=== PATIENT | male | born 1995 | race Caucasian/White ===

== ENCOUNTER 2017-01-04 17:00 | Inpatient (IN) | payer MEDICAID ==
[~2017-01-04] VITALS: Ht 185.4 cm; Wt 106.0 kg
[2017-01-04 17:23] LABS: BASOPHILS % (AUTO) 0.2 % (0.0-2.0); EOSINOPHILS % (AUTO) 0.4 % (1.0-6.0); HEMATOCRIT 46.5 % (41-53); HEMOGLOBIN 16.1 g/dL (13.5-17.5); LYMPHOCYTES # (AUTO) 1.3 K/uL (1.0-4.8); LYMPHOCYTES % (AUTO) 10.1 % (22.0-44.0); MEAN CORPUSCULAR HEMOGLOBIN 29.9 pg (26.0-34.0); MEAN CORPUSCULAR HGB CONC 34.7 G/dL (31.0-37.0); MEAN CORPUSCULAR VOLUME 86 fL (80-100); MONOCYTES # (AUTO) 0.6 K/uL (0.1-1.0); NEUTROPHILS # (AUTO) 10.8 K/uL (1.8-7.7); NEUTROPHILS % (AUTO) 84.3 % (40.0-70.0); PLATELET COUNT (AUTO) 263 K/uL (150-450); RED CELL DISTRIBUTION WIDTH 13.1 % (11.5-14.5); WHITE BLOOD COUNT (AUTO) 12.9 K/uL (4.5-11.0)
[2017-01-04 17:27] LABS: GLUCOSE,POINT OF CARE 157 MG/DL (70-110)
[2017-01-04 17:38] LABS: ANION GAP 15 mmol/L (8-16); CALCIUM, TOTAL 9.4 mg/dL (8.8-10.5); CARBON DIOXIDE 25 mmol/L (22-29); CHLORIDE 100 mmol/L (98-107); CREATININE 1.46 mg/dL (0.60-1.30); GLOMERULAR FILTR. RATE CALC > 60 mL/min (>60); POTASSIUM 3.3 mmol/L (3.5-5.1); SODIUM SERUM 140 mmol/L (136-145); UREA NITROGEN, BLOOD 13 mg/dL (7-18)
[2017-01-04 17:45] LABS: ALANINE AMINOTRANSFERASE 32 U/L (12-78); ALBUMIN 4.5 g/dL (3.4-5.0); ASPARTATE AMINOTRANSFERASE 21 U/L (15-37); BILIRUBIN,TOTAL 0.5 mg/dL (0.1-1.0); TOTAL PROTEIN, SERUM 8.4 g/dL (6.4-8.2)
[2017-01-04] MEDS ORDERED: POTASSIUM CHLORIDE 20 MEQ ER TABLET PO ONE (21:00)
[2017-01-04 23:05] VITALS: BP 118/73
[2017-01-05 00:59] VITALS: BP 118/73
[2017-01-05] MEDS ORDERED: INFLUENZA VIRUS VACCINE QVS 2017-18 (3YR+)/PF 60 MCG/0.5 ML SYRINGE IM ONE (01:45)
[2017-01-05 07:03] LABS: CHOL/HDL RATIO 3.2 (4.2-7.3); POTASSIUM 4.7 mmol/L (3.5-5.1)
[2017-01-05 08:51] VITALS: BP 145/87
[2017-01-05] MEDS: RisperiDONE 1 MG TABLET PO SCH ×3 (09:30→20:28)
[2017-01-05] MEDS ORDERED: IBUPROFEN 400 MG TABLET PO PRN (15:30)
[2017-01-05] MEDS ORDERED: ACETAMINOPHEN 325 MG TABLET PO PRN (15:30)
[2017-01-05 16:47] VITALS: BP 150/98
[2017-01-06 00:55] VITALS: BP 152/91
[2017-01-06 06:51] LABS: BASOPHILS % (AUTO) 0.2 % (0.0-2.0); EOSINOPHILS % (AUTO) 1.9 % (1.0-6.0); HEMATOCRIT 46.8 % (41-53); HEMOGLOBIN 16.1 g/dL (13.5-17.5); LYMPHOCYTES # (AUTO) 2.2 K/uL (1.0-4.8); LYMPHOCYTES % (AUTO) 21.9 % (22.0-44.0); MEAN CORPUSCULAR HEMOGLOBIN 29.7 pg (26.0-34.0); MEAN CORPUSCULAR HGB CONC 34.4 G/dL (31.0-37.0); MEAN CORPUSCULAR VOLUME 86 fL (80-100); MONOCYTES # (AUTO) 0.7 K/uL (0.1-1.0); MONOCYTES % (AUTO) 6.9 % (2.0-9.0); NEUTROPHILS # (AUTO) 6.9 K/uL (1.8-7.7); NEUTROPHILS % (AUTO) 69.1 % (40.0-70.0); PLATELET COUNT (AUTO) 264 K/uL (150-450); RED BLOOD CELL COUNT(AUTO) 5.43 MIL/uL (4.50-5.90); RED CELL DISTRIBUTION WIDTH 13.4 % (11.5-14.5)
[2017-01-06 07:15] LABS: ALANINE AMINOTRANSFERASE 29 U/L (12-78); ALBUMIN 4.4 g/dL (3.4-5.0); ANION GAP 13 mmol/L (8-16); ASPARTATE AMINOTRANSFERASE 20 U/L (15-37); BILIRUBIN,TOTAL 0.7 mg/dL (0.1-1.0); CALCIUM, TOTAL 9.3 mg/dL (8.8-10.5); CARBON DIOXIDE 24 mmol/L (22-29); CHLORIDE 102 mmol/L (98-107); CHOL/HDL RATIO 3.2 (4.2-7.3); CREATININE 1.04 mg/dL (0.60-1.30); GLOMERULAR FILTR. RATE CALC > 60 mL/min (>60); POTASSIUM 3.9 mmol/L (3.5-5.1); SODIUM SERUM 139 mmol/L (136-145); THYROID STIMULATING HORMONE 1.03 uIU/mL (0.36-3.74); TOTAL PROTEIN, SERUM 7.8 g/dL (6.4-8.2); UREA NITROGEN, BLOOD 14 mg/dL (7-18)
[2017-01-06 07:28] LABS: HEMOGLOBIN A1C 5.6 % (4.5-6.2)
[2017-01-06 08:16] VITALS: BP 161/95
[2017-01-06] MEDS: RisperiDONE 1 MG TABLET PO SCH ×2 (08:19→21:00)
[2017-01-06] MEDS: LORazepam 2 MG TABLET PO PRN (08:49)
[2017-01-06] MEDS: HALOPERIDOL 5 MG TABLET PO PRN (08:49)
[2017-01-07 02:02] VITALS: BP 138/80
[2017-01-07 02:33] LABS: ADD UA MICROSCOPIC NO; APPEARANCE,URINE CLEAR (CLEAR); GLUCOSE, URINE (UA) NEGATIVE (NEGATIVE); KETONES,URINE NEGATIVE (NEGATIVE); LEUKOCYTE ESTERASE ,URINE NEGATIVE (NEGATIVE); OCCULT BLOOD,URINE NEGATIVE (NEGATIVE); PH,URINE 5.5 (5.0-8.0); PROTEIN,URINE NEGATIVE (NEGATIVE)
[2017-01-07] MEDS: RisperiDONE 1 MG TABLET PO SCH ×3 (08:43→21:32)
[2017-01-07 08:54] VITALS: BP 158/84
[2017-01-07 16:00] VITALS: BP 156/94
[2017-01-07] MEDS: LORazepam 2 MG TABLET PO PRN (17:24)
[2017-01-07] MEDS: HALOPERIDOL 5 MG TABLET PO PRN (17:24)
[2017-01-07 20:17] VITALS: BP 149/72
[2017-01-08 01:40] VITALS: BP 136/82
[2017-01-08] MEDS: RisperiDONE 1 MG TABLET PO SCH ×2 (08:41→20:40)
[2017-01-08 10:04] VITALS: BP 142/96
[2017-01-08] MEDS: LORazepam 2 MG TABLET PO PRN (16:32)
[2017-01-08 18:39] VITALS: BP 139/85
[2017-01-08] MEDS: ZOLPIDEM TARTRATE 10 MG TABLET PO PRN (20:40)
[2017-01-09] MEDS: RisperiDONE 1 MG TABLET PO SCH ×2 (08:29→20:06)
[2017-01-09 08:38] VITALS: BP 157/92
[2017-01-09] MEDS: LORazepam 2 MG TABLET PO PRN (16:01)
[2017-01-09 16:53] VITALS: BP 140/86
[2017-01-09] MEDS: ZOLPIDEM TARTRATE 10 MG TABLET PO PRN (20:06)
[2017-01-10 04:01] VITALS: BP 148/101
[2017-01-10] MEDS: LORazepam 2 MG TABLET PO PRN (04:04)
[2017-01-10] MEDS: RisperiDONE 1 MG TABLET PO SCH (08:29)
[2017-01-10 08:40] VITALS: BP 96/63
[2017-01-10] MEDS ORDERED: RISP.5 PO (14:39)
== END 2017-01-10 19:00 | disposition home or self-care (01) | DRG 750 ==
LOC: EMS 17:02 → 3EC 21:00
DX: F25.0 Schizoaffective disorder, bipolar type (principal); N17.9 Acute kidney failure, unspecified; Z78.1 Physical restraint status; Z91.14 Patient's other noncompliance with medication regimen; D72.829 Elevated white blood cell count, unspecified; E87.6 Hypokalemia; R73.9 Hyperglycemia, unspecified; F19.10 Other psychoactive substance abuse, uncomplicated; F12.90 Cannabis use, unspecified, uncomplicated; Z28.21 Immunization not carried out because of patient refusal; Z90.49 Acquired absence of other specified parts of digestive tract; Z71.51 Drug abuse counseling and surveillance of drug abuser
CPT/HCPCS: 82962; 83036; 84132; 84443; 99285; G0480